=== PATIENT | female | born 1965 | race American Indian/Alaskan Native ===

== ENCOUNTER 2017-12-03 14:52 | Outpatient (CLI) | payer MEDICAID ==
--- NOTE | 2017-12-06 08:38 | Mammography Report ---
BILATERAL DIGITAL SCREENING MAMMOGRAM with CAD: 12/03/17 14:52:00 CLINICAL: Routine screening. COMPARISON:09/18/16 FINDINGS: The breasts are almost entirely fatty. No mass, architectural distortion or suspicious calcifications. IMPRESSION: No mammographic evidence of malignancy. BI-RADS CATEGORY: 1 - - Negative RECOMMENDATION: Routine mammographic screening in one year. COMMENT: Patient follow-up letters are generated by our [employer] application.
== END 2017-12-03 14:53 | disposition home or self-care (01) ==
LOC: MAMMO 14:52
PROVIDERS: ATTEND Nurse Practitioner
DX: Z12.31 Encounter for screening mammogram for malignant neoplasm of breast (principal)
CPT/HCPCS: 77067

== ENCOUNTER 2018-12-05 14:23 | Outpatient (CLI) | payer MEDICAID ==
--- NOTE | 2018-12-05 15:46 | Mammography Report ---
BILATERAL DIGITAL SCREENING MAMMOGRAM with CAD: 12/05/18 14:23:00 CLINICAL: Routine screening. COMPARISON:12/03/17 FINDINGS: The breasts are almost entirely fatty. No mass, architectural distortion or suspicious calcifications. IMPRESSION: No mammographic evidence of malignancy. BI-RADS CATEGORY: 1 - - Negative RECOMMENDATION: Routine mammographic screening in one year. COMMENT: Patient follow-up letters are generated by our [employer] application.
== END 2018-12-05 14:24 | disposition home or self-care (01) ==
LOC: MAMMO 14:23
PROVIDERS: ATTEND Nurse Practitioner
DX: Z12.31 Encounter for screening mammogram for malignant neoplasm of breast (principal); I10 Essential (primary) hypertension; E78.00 Pure hypercholesterolemia, unspecified; E66.9 Obesity, unspecified; K21.9 Gastro-esophageal reflux disease without esophagitis; M19.90 Unspecified osteoarthritis, unspecified site; Z90.710 Acquired absence of both cervix and uterus
CPT/HCPCS: 77067

== ENCOUNTER 2019-04-24 09:51 | Day surgery (SDC) | payer MEDICAID ==
--- NOTE | 2019-04-24 10:56 | Anesthesia Day of Surgery ---
Anesthesia Day of Surgery - Day of Surgery Patient Examined: Yes Patient H&P Reviewed: Yes Patient is NPO: Yes
--- NOTE | 2019-04-24 10:58 | Anesthesia Consultation ---
Anesthesia Consult and Med Hx Date of service: 04/24/19 - Airway Anesthetic Teeth Evaluation: Good ROM Head & Neck: Inadequate (Limited ROM due to right torn rotacuff) Mental/Hyoid Distance: Adequate Mallampati Class: Class II Intubation Access Assessment: Possibly Difficult - Pulmonary Exam CTA: Yes - Cardiac Exam Cardiac Exam: RRR - Pre-Operative Health Status ASA Pre-Surgery Classification: ASA3 Proposed Anesthetic Plan: MAC - Pulmonary Hx Smoking: No Hx Sleep Apnea: No - Cardiovascular System Hx Hypertension: Yes Hx Heart Murmur: Yes - Central Nervous System Hx Back Pain: Yes (lower) Hx Psychiatric Problems: Yes - Other Systems Hx Cancer: No Hx Obesity: Yes
[2019-04-24] MEDS ORDERED: NACL 0.9% 1000 ML 1,000 ML IV SCH (11:00)
[2019-04-24] MEDS ORDERED: DIPRIVAN 10 MG/ML IV ONE ×2 (12:15)
--- NOTE | 2019-04-24 12:42 | Operative Report ---
Operative Report Operative Report: Date of procedure: 04/24/2019 Procedure: Colonoscopy with Multiple Hot Biopsy Polypectomies. Attending physician: Lai Stover MD Healthcare Business Analyst: Lai Stover MD Indication: Patient is a 54-year-old female who presents for screening colonoscopy. This colonoscopy serves to evaluate patient so that treatment may be directed based on the findings. Consent: Informed consent was obtained after advising the patient and family regarding nature of this procedure, its indications, potential benefits as well as possible complications including but not limited to bleeding perforation and adverse reaction to medication, infection as well as other cardiopulmonary complications. An informed written and verbal consent was then obtained after due opportunity was provided for questions and answers. Monitoring: Patient was monitored continuously with pulse oximetry and electrocardiographic recordings as well as blood pressure recordings. Vital signs remained stable throughout this procedure with no untoward events. Preoperative assessment: Patient was assessed immediately prior to this procedure for capacity to tolerate monitored anesthesia care and moderate sedation as well as general anesthesia. Patient's ASA classification is 2, Mallampati class is 2, Hyomental distance is 3. Instrument: Olympus video colonoscope Medications: Propofol given intravenously in divided doses. For details please refer to anesthesia records. Description of procedure: Patient was placed in the left lateral decubitus position after achieving sedation, a digital rectal examination was performed following which the colonoscope was introduced into the anal verge and advanced to the cecum which was identified by the cecal valve, the appendiceal orifice, as well as by the cecal strap and direct transillumination. The colonoscope was subsequently withdrawn with careful inspection of all mucosal surfaces. Patient tolerated this procedure well and was subsequently taken to the recovery room. The following findings were noted. Findings: The cecum was normal. The ascending colon was normal. The transverse colon was normal. The descending colon was normal. In the mid sigmoid colon, patient had 2 polyps one sessile polyp measured approximately 6-7 mm which was removed by hot biopsy polypectomy. Another flat polyp measuring about 5 mm which was removed by hot biopsy polypectomy. In the rectum, patient had 2 diminutive flat polyps that were ablated. On the retroflex view at the anal verge, patient had internal hemorrhoids. Impression: Multiple sigmoid colon polyps status post hot biopsy polypectomy. Rectal polyps status post ablation. Internal hemorrhoids. Plan: Follow pathology report. High-fiber diet. Repeat colonoscopy in 5 years if polyps are adenomatous.
--- NOTE | 2019-04-24 12:43 | Discharge Summary ---
Short Stay Discharge Plan Activity: advance as tolerated Weight Bearing Status: Weight Bear as Tolerated Diet: regular Follow up with: RAMÓN OSBORN NP-C [Primary Care Provider] - 7 Days
[2019-04-24] MEDS ORDERED: WATER FOR IRRIG STERILE ONE (12:58)
[2019-04-24] MEDS ORDERED: XYLOCAINE MPF 2% ONE (13:00)
[2019-04-24 13:32] VITALS: BP 136/92
== END 2019-04-24 09:52 | disposition home or self-care (01) ==
LOC: GIO 09:51
PROVIDERS: ATTEND Internal Medicine Gastroenterology
DX: Z12.11 Encounter for screening for malignant neoplasm of colon (principal); K63.5 Polyp of colon; K64.8 Other hemorrhoids; I10 Essential (primary) hypertension; K21.9 Gastro-esophageal reflux disease without esophagitis; E78.00 Pure hypercholesterolemia, unspecified; E66.9 Obesity, unspecified; M19.90 Unspecified osteoarthritis, unspecified site; F32.9 Major depressive disorder, single episode, unspecified; F41.9 Anxiety disorder, unspecified; Z98.890 Other specified postprocedural states; Z79.899 Other long term (current) drug therapy; Z68.42 Body mass index [BMI] 45.0-49.9, adult; Z98.51 Tubal ligation status; Z90.710 Acquired absence of both cervix and uterus
CPT/HCPCS: 45384; 45388; 88305; J2704; J7030

== ENCOUNTER 2021-01-14 11:50 | Outpatient (CLI) | payer MEDICAID ==
--- NOTE | 2021-01-14 13:17 | XRay Report ---
LUMBAR SPINE, 4+ views. INDICATION: LOW BACK PAIN.. COMPARISON: None. FINDINGS: Frontal, lateral, cone-down lateral views, and bilateral oblique views of the lumbar spine were obtained. There are 5 nonrib-bearing lumbar vertebral bodies. No evidence of acute fracture or v ertebral body subluxation is identified. Moderate to severe degenerative changes present within the m id and lower lumbar spine. The findings appear most severe at L2/L3, L4/L5, and L5/S1. There appears to be at least moderate to severe neuroforaminal narrowing bilaterally at these levels with moderate neuroforaminal narrowing at L3/L4. IMPRESSION: Lumbar spine without evidence of acute osseous injury. Moderate to severe degenerative change within the mid and lower lumbar spine with findings worse at L 2/L3, L4/L5, and L5/S1. There appears to be at least moderate to severe neuroforaminal narrowing bila terally at these levels with moderate neuroforaminal narrowing at L3/L4. Additional evaluation with M [facility] may be considered. Signer Name: Diogo Patel MD Signed: 01/14/2021 1:12 PM Workstation Name: [id number]
== END 2021-01-14 11:51 | disposition home or self-care (01) ==
LOC: XRAY 11:50
PROVIDERS: ATTEND Orthopaedic Surgery
DX: M47.817 Spondylosis without myelopathy or radiculopathy, lumbosacral region (principal); M48.07 Spinal stenosis, lumbosacral region
CPT/HCPCS: 72110

== ENCOUNTER 2021-02-12 07:01 | Outpatient (CLI) | payer MEDICAID ==
--- NOTE | 2021-02-12 09:27 | Magnetic Resonance Report ---
MRI LUMBAR SPINE 02/12/2021 INDICATION / CLINICAL INFORMATION: LOW BACK PAIN. COMPARISON: None available. FINDINGS: GENERAL OBSERVATIONS: Unenhanced MR images of the lumbar spine were obtained. There is no evidence of acute abnormality. Mild left convex scoliosis is present. Vertebral body alig nment is otherwise unremarkable. [id number] ANALYSIS: L5-S1: Moderate diffuse disc bulging and prominent bilateral facet degenerative changes, right greate r than left. There is severe stenosis of the right neural foramen with probable impingement upon the exiting right L5 nerve root. L4-5: Disc space narrowing and mild diffuse disc bulging. Moderate facet degenerative changes. L3-4: Mild symmetric diffuse disc bulging. L2-3: Moderate diffuse disc bulging, slightly greater on the left. mild facet degenerative changes. M ild left-sided foraminal narrowing with no definite evidence of nerve root compression. L1-2: Unremarkable. BONE MARROW: Extensive degenerative bone marrow signal change is present throughout the lumbar spine. SPINAL CORD/CAUDA EQUINA: Unremarkable PARASPINAL SOFT TISSUES: No significant abnormality. IMPRESSION: Multilevel degenerative changes as described above. Right-sided foraminal narrowing at L5-S1. Signer Name: Alen Solis MD Signed: 02/12/2021 9:23 AM Workstation Name: [email or web address]
== END 2021-02-12 07:02 | disposition home or self-care (01) ==
LOC: MRI 07:01
PROVIDERS: ATTEND Orthopaedic Surgery
DX: M48.07 Spinal stenosis, lumbosacral region (principal); M47.817 Spondylosis without myelopathy or radiculopathy, lumbosacral region; M51.27 Other intervertebral disc displacement, lumbosacral region
CPT/HCPCS: 72148

== ENCOUNTER 2021-04-24 12:33 | Emergency (ER) | payer MEDICAID ==
[2021-04-24 12:48] VITALS: BP 147/81
== END 2021-04-24 14:32 | disposition left against medical advice (07) ==
LOC: ED 12:33
DX: R06.02 Shortness of breath (principal); Z53.21 Procedure and treatment not carried out due to patient leaving prior to being seen by health care provider